=== PATIENT | male | born 1985 | race Two or more races ===

== ENCOUNTER 2018-12-23 22:39 | Emergency (ER) | payer SELFPAY ==
[~2018-12-23] VITALS: Ht 190.5 cm; Wt 79.9 kg
[2018-12-23 22:53] VITALS: BP 162/96
== END 2018-12-23 23:01 | disposition left against medical advice (07) ==
LOC: ER 22:39
DX: Z53.21 Procedure and treatment not carried out due to patient leaving prior to being seen by health care provider (principal); I10 Essential (primary) hypertension; F17.200 Nicotine dependence, unspecified, uncomplicated